=== PATIENT | male | born 1970 | race Caucasian/White ===

== ENCOUNTER 2018-11-27 01:28 | Emergency (ER) | payer OTHER ==
[2018-11-27 01:48] LABS: BASOPHILS # (AUTO) 0.1 10^3/uL (0.0-0.1); BASOPHILS % (AUTO) 1.2 %; EOSINOPHILS # (AUTO) 0.2 10^3/uL (0.0-0.7); EOSINOPHILS % (AUTO) 2.4 %; HGB - HEMOGLOBIN 15.8 g/dL (14.0-18.0); LYMPHOCYTES # (AUTO) 2.6 10^3/uL (1.5-3.5); MEAN CORPUSCULAR HEMOGLOBIN 28.1 pg (27.0-31.0); MEAN CORPUSCULAR HGB CONC 32.3 g/dL (32.0-36.0); MEAN PLATELET VOLUME 9.8 fL (7.4-11.4); MONOCYTES # (AUTO) 0.7 10^3/uL (0.0-1.0); MONOCYTES % (AUTO) 8.9 %; NEUTROPHILS % (AUTO) 53.2 %; PLT - PLATELET COUNT 299 10^3/uL (130-450); RED BLOOD COUNT 5.62 10^6/uL (4.70-6.10); RED CELL DISTRIBUTION WIDTH 13.7 % (12.0-15.0); WHITE BLOOD COUNT 7.6 x10^3/uL (4.8-10.8)
[2018-11-27 02:02] LABS: ALBUMIN 4.5 g/dL (3.2-5.5); ALBUMIN/GLOBULIN RATIO 1.3 (1.0-2.2); BILIRUBIN,TOTAL 0.6 mg/dL (0.2-1.0); CALCIUM 9.2 mg/dL (8.5-10.3)
--- NOTE | 2018-11-27 02:10 | XRAY Report ---
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 CLINICAL HISTORY: Central chest pain, shortness of breath. COMPARISON: 12/04/2008 8:39 AM. TECHNIQUE: 1 view. FINDINGS: Lungs/Pleura: No focal opacities evident. No pleural effusion. No pneumothorax. Mediastinum: Within exam limitations, the cardiomediastinal contour is normal. Other: None. IMPRESSION: Stable normal appearance of the chest. RADIA
--- NOTE | 2018-11-27 03:02 | ED Physician Documentation ---
PD HPI CHEST PAIN - Stated complaint Stated Complaint: CP/DIFFICULTY BREATHING - Chief complaint Chief Complaint: Cardiac - History obtained from History obtained from: Patient - History of Present Illness Timing - onset: How many hours ago (3-4 hours [employer]) Timing - onset during: Sleep Timing - details: Gradual onset, Intermittant, Waxing and waning Pain level max: 4 Pain level now: 0 Quality: Pressure Location: Substernal Radiation: No: Jaw, Neck, Back, Abdominal, Left upper extremity, Right upper extremity Improved by: Nothing Worsened by: No: Exertion, Inspiration, Eating, Movement, Palpation, Position Associated symptoms: Nausea. No: Shortness of air, Diaphoresis, Vomiting Similar symptoms before: Has not had sx before Recently seen: Not recently seen Review of Systems Constitutional: reports: Reviewed and negative Cardiac: reports: Chest pain / pressure. denies: Palpitations, Pedal edema, Calf pain Respiratory: reports: Reviewed and negative GI: reports: Nausea. denies: Abdominal Pain, Vomiting Musculoskeletal: reports: Reviewed and negative PD PAST MEDICAL HISTORY - Past Medical History Past Medical History: No Cardiovascular: Hypertension, High cholesterol Respiratory: None Neuro: None Endocrine/Autoimmune: None GI: GERD : None HEENT: None Psych: None Musculoskeletal: None Derm: None - Past Surgical History Past Surgical History: Yes General: Hiatal hernia repair - Allergies Allergies/Adverse Reactions: Allergies Allergy/AdvReac Type Severity Reaction Status Date / Time No Known Drug Allergies Allergy Verified 11/27/18 01:36 - Social History Does the pt smoke?: No Smoking Status: Never smoker Does the pt drink ETOH?: Yes Does the pt have substance abuse?: No - Immunizations Immunizations are current?: Yes - POLST Patient has POLST: No PD ED PE NORMAL - Vitals Vital signs reviewed: Yes - General General: Alert and oriented X 3, No acute distress, Well developed/nourished - HEENT HEENT: Moist mucous membranes - Neck Neck: Supple, no meningeal sign - Cardiac Cardiac: RRR, No murmur, No gallop, No rub - Respiratory Respiratory: No respiratory distress, Clear bilaterally - Abdomen Abdomen: Soft, Non tender - Derm Derm: Normal color, Warm and dry - Extremities Extremities: No edema Results - Vitals Vitals: Vital Signs - 24 hr 11/27/18 11/27/18 03:35 05:03 Temperature 36.8 C Heart Rate 91 79 Respiratory 14 14 Rate Blood Pressure 121/57 L 141/91 H O2 Saturation 94 98 Oxygen O2 Source Room air - EKG (time done) No standard instances Rate: Rate (enter#) (100) Rhythm: NSR Given: LAD (borderline) Intervals: Normal [place] QRS: Normal Ischemia: Normal ST segments, Q waves (V1-V3) - Labs Labs: Laboratory Tests 11/27/18 11/27/18 11/27/18 01:40 01:40 01:40 WBC 7.6 RBC 5.62 Hgb 15.8 Hct 48.9 MCV 87.0 MCH 28.1 MCHC 32.3 RDW 13.7 Plt Count 299 MPV 9.8 Neut # (Auto) 4.0 Lymph # (Auto) 2.6 Dickenson # (Auto) 0.7 Eos # (Auto) 0.2 Baso # (Auto) 0.1 Absolute Nucleated RBC 0.00 Nucleated RBC % 0.0 Sodium 141 Potassium 3.6 Chloride 106 Carbon Dioxide 23 Anion Gap 12.0 BUN 10 Creatinine 1.0 Estimated GFR (MDRD) 80 L Glucose 134 H Calcium 9.2 Total Bilirubin 0.6 AST 43 H ALT 62 H Alkaline Phosphatase 81 Troponin I < 0.04 Total Protein 8.0 Albumin 4.5 Globulin 3.5 Albumin/Globulin Ratio 1.3 Lipase 31 11/27/18 03:40 WBC RBC Hgb Hct MCV MCH MCHC RDW Plt Count MPV Neut # (Auto) Lymph # (Auto) Dickenson # (Auto) Eos # (Auto) Baso # (Auto) Absolute Nucleated RBC Nucleated RBC % Sodium Potassium Chloride Carbon Dioxide Anion Gap BUN Creatinine Estimated GFR (MDRD) Glucose Calcium Total Bilirubin AST ALT Alkaline Phosphatase Troponin I < 0.04 Total Protein Albumin Globulin Albumin/Globulin Ratio Lipase - Rads (name of study) chest xray Radiology: Prelim report reviewed, See rad report PD MEDICAL DECISION MAKING - ED course Complexity details: reviewed results, re-evaluated patient, considered differential, d/w patient Departure - Departure Disposition: 01 Home, Self Care Clinical Impression: Chest pain Condition: Good Health Concerns: chest pain Plan of Treatment: return if worse, follow up with primary care provider for further testing Assessment: see diagnosis Instructions: ED Chest Pain Atypical Unkn Cause Discharge Date/Time: 11/27/18 05:20
[2018-11-27 05:04] VITALS: BP 141/91
== END 2018-11-27 05:20 | disposition home or self-care (01) ==
LOC: ED 01:28
DX: R07.9 Chest pain, unspecified (principal); I10 Essential (primary) hypertension
CPT/HCPCS: 36415; 71045; 80053; 83690; 84484; 85025; 93005; 99283; 99285

== ENCOUNTER 2019-02-03 11:28 | Day surgery (SDC) | payer OTHER ==
[~2019-02-03 11:28] MED LIST: BACITRACIN OINT TOP ONE; BUPIVACAINE 0.5%-EPI 1:200000 PF 10 ML VIAL ONE; EPINEPHrine 1 MG/ML AMP ONE; LIDOCAINE MPF 2%-EPI 1:200000 20 ML VIAL ONE; SODIUM CHLORIDE 0.9% 0 ML ONE
[2019-02-03] MEDS ORDERED: KETOROLAC 30 MG/ML VIAL IVP ONE (11:29)
[2019-02-03] MEDS ORDERED: DEXAMETHASONE 4 MG/ML VIAL IVP ONE (11:29)
[2019-02-03] MEDS ORDERED: ONDANSETRON 4 MG/2 ML VIAL IVP ONE (11:29)
[2019-02-03] MEDS ORDERED: PROPOFOL 200 MG/20 ML VIAL IVP ONE (11:29)
[2019-02-03] MEDS ORDERED: MIDAZOLAM 2 MG/2 ML VIAL IVP ONE (11:29)
[2019-02-03] MEDS ORDERED: fentaNYL 100 MCG/2 ML VIAL IVP ONE (11:29)
[2019-02-03] MEDS ORDERED: ROCURONIUM 50 MG/5 ML VIAL IVP ONE (11:29)
[2019-02-03] MEDS ORDERED: CHLORHEXIDINE GLUCONATE 15 ML UDC PO ONE (11:45)
--- NOTE | 2019-02-03 12:09 | ANESTHESIA ---
Pre-Anesthesia VS, & Labs - Diagnosis L mandible localized swelling, mass - Procedure L mandible mass biopsy, deep bone Vital Signs: Temp Pulse Resp BP Pulse Ox 36.3 C L 63 18 133/90 H 97 02/03/19 11:36 02/03/19 11:36 02/03/19 11:36 02/03/19 11:36 02/03/19 11:36 Height 5 ft 10 in Weight (kg) 91.6 kg Body Mass Index 30.1 - NPO >8 hours Home Medications and Allergies Home Medications: Ambulatory Orders Ibuprofen [Motrin] 600 mg PO Q6H PRN 01/31/19 Oxycodone HCl/Acetaminophen [Percocet 5-325 mg Tablet] 02/03/19 Ibuprofen [Motrin] 600 mg PO Q6H PRN 01/31/19 Oxycodone HCl/Acetaminophen [Percocet 5-325 mg Tablet] 02/03/19 Allergies/Adverse Reactions: Allergies Allergy/AdvReac Type Severity Reaction Status Date / Time No Known Drug Allergies Allergy Verified 11/27/18 01:36 Anes History & Medical History - Anesthetic History Anesthesia Complications: reports: No previous complications Family history of Anesthesia Complications: Denies Family history of Malignant Hyperthermia: Denies - Medical History Cardiovascular: reports: None (hx CP w/ER visit, resolved, no cardiac injury per new EKG today) Pulmonary: reports: None Gastrointestinal: reports: None Urinary: reports: None Neuro: reports: None Musculoskeletal: reports: None, Other (left mandible mass) Endocrine/Autoimmune: reports: None Blood Disorders: reports: None Skin: reports: Other Smoking Status: Never smoker - Surgical History General: Other Eyes Ears Nose Throat (EENT): Other Dermatologic: Skin cancer surgery Exam General: Alert, Oriented x3, Cooperative Dental: WNL, Other (pain @L jaw intermittent) Mouth Openin Fingerbreadth Neck Mobility: Normal Mallampati classification: III Thyromental Distance: 4-6 cm Respiratory: Lungs clear, Normal breath sounds, No respiratory distress Cardiovascular: Regular rate Neurological: Normal speech Mental/Cognitive Status: Alert/Oriented X3, Normal for patient Cognitive Status: Within normal limits Plan Anesthesia Type: General Consent for Procedure(s) Verified and Reviewed: Yes Code Status: Attempt Resuscitation ASA classification: 2-Mild systemic disease Is this case an emergency?: No
[2019-02-03] MEDS ORDERED: LACTATED RINGERS 1,000 ML IV ONE ×2 (12:16→13:44)
--- NOTE | 2019-02-03 13:59 | ANESTHESIA ---
Pre-Anesthesia VS, & Labs - Diagnosis mandibular cysts - Procedure Excise mandible custs, remove marrow from hip Height 5 ft 10 in Body Mass Index 30.1 - NPO >8 hours - Lab Results Lab results reviewed: Yes Home Medications and Allergies Home Medications: Ambulatory Orders Ibuprofen [Motrin] 600 mg PO Q6H PRN 01/31/19 RX: Oxycodone HCl/Acetaminophen [Percocet 5-325 mg Tablet] 02/03/19 Ibuprofen [Motrin] 600 mg PO Q6H PRN 01/31/19 Allergies/Adverse Reactions: Allergies Allergy/AdvReac Type Severity Reaction Status Date / Time No Known Drug Allergies Allergy Verified 11/27/18 01:36 Anes History & Medical History - Anesthetic History Anesthesia Complications: reports: No previous complications Family history of Anesthesia Complications: Denies Family history of Malignant Hyperthermia: Denies - Medical History Cardiovascular: reports: None Pulmonary: reports: None Gastrointestinal: reports: None Urinary: reports: None Neuro: reports: None Musculoskeletal: reports: None Endocrine/Autoimmune: reports: None Blood Disorders: reports: None Skin: reports: Other Smoking Status: Never smoker Psychosocial: reports: No issues indicated - Surgical History General: Other Eyes Ears Nose Throat (EENT): Other Dermatologic: Skin cancer surgery Exam General: Alert Mouth Openin Fingerbreadth Neck Mobility: Normal Mallampati classification: III Thyromental Distance: 4-6 cm Respiratory: Lungs clear, Crackles Plan Anesthesia Type: General Consent for Procedure(s) Verified and Reviewed: Yes Code Status: Attempt Resuscitation ASA classification: 2-Mild systemic disease Is this case an emergency?: No
[2019-02-03] MEDS ORDERED: fentaNYL 100 MCG/2 ML VIAL ONE (15:57)
[2019-02-03] MEDS ORDERED: oxyCODONE 5 MG TABLET PO PRN (16:22)
[2019-02-03 16:36] VITALS: BP 150/97
--- NOTE | 2019-02-04 03:20 | OPERATIVE REPORT ---
DATE OF SERVICE: 02/03/2019 Physician: Tomas Cruz DDS PREOPERATIVE DIAGNOSIS: Lytic lesion of the left mandible with severe left mandibular pain. POSTOPERATIVE DIAGNOSIS: Lytic lesion of the left mandible with severe left mandibular pain. PROCEDURE PERFORMED 1. Deep bone biopsy of the left mandible via a Risdon approach. 2. Extraction of tooth number 18. 3. 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 PRIMARY SURGEON: Tomas Cruz DDS. ANESTHESIA PROVIDER: Gerson Matamoros CRNA. ANESTHESIA TYPE: General anesthesia via oral endotracheal intubation. IMPLANTS: None. SPECIMENS 1. Swab culture of purulent exudate from the left mandible sent for Gram stain, aerobic and anaerobi c culture. 2. Granulation tissue curetted from the left mandible, submitted for pathologic examination. ESTIMATED BLOOD LOSS: 50 mL INDICATIONS FOR PROCEDURE: This is a 48-year-old male who reported to my office with 3 months of sev ere pain of the left mandible. Radiographic and clinical examination was consistent with a lytic les ion of unclear etiology of the left mandible. The most likely differential diagnosis was osteomyelit is, but there was no clear evidence of any soft tissue infection at the time of the examination and s o the diagnosis was unsure. It was decided that biopsy and, if necessary, debridement of the lesion was indicated as well as removal of tooth number 18. The risks, benefits and alternatives of this pl an were discussed with the patient including pain, swelling, bleeding, infection, nerve damage with p ermanent numbness of the lip, nerve damage with permanent paralysis of the muscles of the left side o f the face, recurrence of the disease, failure of the surgery to cure the osteomyelitis and the need for continued antibiotics, damage to adjacent teeth, jaw fracture, need for further surgery, poor cos mesis. Adequate time was given to answer all questions and informed consent was obtained. DESCRIPTION OF PROCEDURE: The patient was brought to the main operating room and placed in the supin e position on the operating table. General anesthesia was induced by the anesthesia team and the air way was secured with an oral endotracheal tube. The tube was secured to the right side of the mouth. The eyes were protected with Tegaderm dressings. All pressure points were padded and checked. The arms were tucked. The patient was prepped and draped in the standard sterile fashion for surgery in the neck. A formal timeout was executed. Local anesthesia was achieved with 10 mL of 2% lidocaine with 1:100,000 epinephrine. Attention was directed to the left neck. A skin fold was identified in the left neck about 3 cm infe rior to the inferior border of the mandible. An incision through skin was made. The platysma was ea sily identified and . In the subplatysmal layers, a nerve stimulator was used during dissec tion. We dissected down to the outer capsular layer of the left submandibular gland and after nerve stimulation, incised sharply through the capsule. We then dissected bluntly through the submandibula r gland itself and encountered the facial artery and vein. They were retracted superiorly and anteri aranza and we did not need to divide them. We did control bleeding of one smaller vessel with silk portillo d ties. During retraction, and even without any nerve stimulation at all of the vessels superiorly, stimulation of the marginal mandibular branch of the facial nerve was noted. But at no point during any of the sharp dissection of the tissues was any stimulation of the tissues ever appreciated. The pterygomasseteric sling was encountered and incised sharply down to bone and in the subperiosteal lay er, the lateral aspect of the mandible was exposed. We were then easily able to identify a hole in t he lateral mandible where, supposedly, the infection had been draining out into the soft tissues. We used this hole as a guide to guide the removal of bone; and after using a haider to remove bone under copious irrigation, we were able to unroof a lesion of granulation tissue. As this area was unroofed , purulence was expressed from the site from within the bone itself. This purulence was cultured in sterile fashion and then we continued to unroof the granulation tissue and remove as much of it as po ssible in one single specimen to submit to pathology for microscopic evaluation. Curettage of the jesus ny lai was then performed down to bleeding bone. This was done carefully to avoid damage to the in ferior alveolar nerve, but the inferior alveolar nerve was observed to be intact by the end of the pr ocedure. We irrigated the entire area copiously and then closed in layers, with the deep layers bein g closed first with 4-0 Vicryl suture and then the skin being closed with 5-0 Prolene suture. No com plications. We turned our attention intraorally and addressed tooth number 18. A throat pack was placed. Tooth number 18 was removed with removal of a small amount of bone on the buccal. Then, the tooth was contreras vandana and the site was curetted and irrigated. It was left open to allow for continued drainage. At this point, care of the patient was turned back to the anesthesia team. The throat pack was remov ed. The mouth was rinsed free of debris. The patient was extubated uneventfully and emerged from an esthesia, transferred to the PACU and care was transferred to the PACU nurse. At the time of the tra nsfer of care, the patient was found to be in stable condition. TD: 02/03/2019 19:09
== END 2019-02-03 11:29 | disposition home or self-care (01) ==
LOC: SDS 11:28
PROVIDERS: ATTEND Dentist Oral and Maxillofacial Surgery
PROC: 0CTX0Z0 Resection of Lower Tooth, Single, Open Approach (ICD-10-PCS; 2019-02-03)
PROC: 0NBV0ZX Excision of Left Mandible, Open Approach, Diagnostic (ICD-10-PCS; principal; 2019-02-03 12:30)
DX: M27.2 Inflammatory conditions of jaws (principal); Z87.891 Personal history of nicotine dependence
CPT/HCPCS: 20245; 41899; 87070; 87075; 87076; 87205; 88305; 88311; 93005; A9270; J7120

== ENCOUNTER 2020-05-07 20:31 | Outpatient (CLI) | payer OTHER | END 2020-05-07 20:32 | disposition home or self-care (01) | LOC: COV 20:31 | PROVIDERS: ATTEND Family Medicine | DX: R68.83 Chills (without fever) (principal); M79.10 Myalgia, unspecified site; R53.83 Other fatigue; Z20.828 Contact with and (suspected) exposure to other viral communicable diseases ==